=== PATIENT | male | born 1980 | race Caucasian/White ===

== ENCOUNTER 2017-09-01 10:04 | Emergency (ER) | payer BC, OTHER ==
[2017-09-01 10:08] VITALS: BP 144/83
[2017-09-01] MEDS ORDERED: Ondansetron ODT TAB* 4 MG PO ONE (10:53)
--- NOTE | 2017-09-01 10:59 | ED ---
Abdominal Pain/Male - HPI Summary HPI Summary: This pt is a 36 y/o male presenting to [facility] c/o flare up of cyclic vomiting since yesterday. Pt reports he has hx of cyclic vomiting and has been able to keep it under control for the past 3.5 years. He states he has had "minor episodes" for which he usually drinks water and goes on bike rides, in addition to taking omeprazole. Pt notes that he went to work today but vomited and had to go home. He reports his told him he looked pale. Pt additionally states severe abdominal pain, cold chills. In the past pt states the GI cocktail of Benadryl, Ativan, Zofran, and Dilaudid work for him. - History of Current Complaint Chief Complaint: EDAbdPain Stated Complaint: VOMITING Time Seen by Provider: 09/01/17 10:57 Hx Obtained From: Patient Onset/Duration: Lasting Days - 1, Still Present Timing: Lasting Days - 1 Severity Currently: Severe Pain Intensity: 8 Pain Scale Used: 0-10 Numeric Location: Diffuse Radiates: No Aggravating Factor(s): Nothing Alleviating Factor(s): Nothing Associated Signs And Symptoms: Positive: Nausea, Vomiting, Other - POS: chills. Negative: Fever - Allergies/Home Medications Allergies/Adverse Reactions: Allergies Allergy/AdvReac Type Severity Reaction Status Date / Time morphine AdvReac Vomiting Verified 09/01/17 10:08 METAL Allergy Severe SKIN Uncoded 09/01/17 10:08 IRRITATION PMH/Surg Hx/FS Hx/Imm Hx Endocrine/Hematology History: Denies: Hx Diabetes, Hx Thyroid Disease Cardiovascular History: Denies: Hx Congestive Heart Failure, Hx Hypertension Respiratory History: Denies: Hx Asthma, Hx Chronic Obstructive Pulmonary Disease (COPD) GI History: Reports: Hx Irritable Bowel - FOR 02/24, Other GI Disorders - IBS Denies: Hx Ulcer History: Denies: Hx Kidney Stones, Hx Renal Disease Musculoskeletal History: Denies: Hx Arthritis, Hx Osteoporosis - Immunization History Date of Tetanus Vaccine: Unknown Date of Influenza Vaccine: None Infectious Disease History: No Infectious Disease History: Denies: Hx Hepatitis, Hx Human Immunodeficiency Virus (HIV), Traveled Outside the [place] in Last 30 Days - Family History Known Family History: Positive: Diabetes Family History: hypercholesterolemia - Social History Alcohol Use: None Substance Use Type: Reports: None Substance Use Comment - Amount & Last Used: PT STATES HE NO LONGER SMOKES MARIJUANA Smoking Status (MU): Heavy Every Day Tobacco Smoker Review of Systems Constitutional: Other - pale, per Positive: Chills. Negative: Fever Cardiovascular: Negative Positive: Abdominal Pain, Vomiting, Nausea Skin: Negative Neurological: Negative All Other Systems Reviewed And Are Negative: Yes Physical Exam - Summary Physical Exam Summary: Appearance: The patient is well-nourished. Skin: The skin is warm and dry and skin color reflects adequate perfusion. HEENT: The head is normocephalic and atraumatic. The pupils are equal and reactive. The conjunctivae are clear and without drainage. Nares are patent and without drainage. Mouth reveals moist mucous membranes and the throat is without erythema and exudate. The external ears are intact. The ear canals are patent and without drainage. The tympanic membranes are intact. Neck: the neck is supple with full range of motion and non-tender. There are no carotid bruits. There is no neck vein distension. Respiratory: Chest is non-tender. Lungs are clear to auscultation and breath sounds are symmetrical and equal. Cardiovascular: Heart is regular rate and rhythm. There is no murmur or rub auscultated. There is no peripheral edema and pulses are symmetrical and equal. Abdomen: The abdomen is soft and non-tender. There are normal bowel sounds heard in all four quadrants and there is no organomegaly palpated. Musculoskeletal: There is no back tenderness noted. Extremities are non-tender with full range of motion. There is good capillary refill. There is no peripheral edema or calf tenderness elicited. Neurological: Patient is alert and oriented to person, place and time. Psychiatric: The patient has an appropriate affect and does not exhibit any anxiety or depression. Triage Information Reviewed: Yes Vital Signs On Initial Exam: Initial Vitals Temp Pulse Resp BP Pulse Ox 96.3 F 73 15 144/83 100 09/01/17 10:05 09/01/17 10:05 09/01/17 10:05 09/01/17 10:05 09/01/17 10:05 Vital Signs Reviewed: Yes Diagnostics - Vital Signs Vital Signs Temp Pulse Resp BP Pulse Ox 09/01/17 10:05 96.3 F 73 15 144/83 100 - Laboratory Result Diagrams: 09/01/17 11:19 09/01/17 11:19 Lab Statement: Any lab studies that have been ordered have been reviewed, and results considered in the medical decision making process. Re-Evaluation - Re-Evaluation First Eval Re-Evaluation Time: 12:56 Change: Improved Comment: Pt is currently sleeping. Abdominal Pain Fem Course/Dx - Course Course Of Treatment: Mr. Mitchell presents complaining of cyclic vomiting syndrome symptoms. He has had cyclic vomiting syndrome for many years but has been able to avoid coming to the emergency department for the last 4 years by taking omeprazole, riding his bicycle and relaxation techniques. He has had many small episodes but never had to come to the emergency department. Prior to 2013 he was a frequent visitor to this emergency department. He was treated with IV Protonix, Ativan, Dilaudid, Reglan and IV normal saline. He got significant relief and slept well here. - Diagnoses Provider Diagnoses: Abdominal pain, Cyclic vomiting syndrome Discharge - Sign-Out/Discharge Documenting (check all that apply): Patient Departure - Discharge - Discharge Plan Condition: Stable Disposition: HOME Patient Education Materials: Abdominal Pain (ED) Referrals: Care [facility] [Outside] Additional Instructions: Please establish a primary care provider and follow up in 2-3 days. RETURN TO THE ED FOR ANY WORSENING SYMPTOMS. - Billing Disposition and Condition Condition: STABLE Disposition: Home
[2017-09-01] MEDS ORDERED: NS 0.9% 1000 ML* 1,000 ML IV ONE (11:11)
[2017-09-01] MEDS ORDERED: HYDROmorphone INJ* 1 MG/ML CARPUJECT SYRINGE IV ONE (11:11)
[2017-09-01] MEDS ORDERED: Pantoprazole IV* 40 MG IV ONE (11:11)
[2017-09-01] MEDS ORDERED: diPHENhydraMINE PO* 50 MG PO ONE (11:11)
[2017-09-01] MEDS ORDERED: Metoclopramide IV* 5 MG/ML 2 ML VIAL IV ONE (11:11)
[2017-09-01] MEDS ORDERED: LORazepam INJ* 2 MG/ML 1 ML VIAL IV ONE (11:11)
[2017-09-01 11:30] LABS: ABS Basophils 0.1 10^3/ul (0-0.2); ABS Eosinophils 0 10^3/ul (0-0.6); ABS Lymphocytes 0.8 10^3/ul (1.0-4.8); ABS Monocytes 0.3 10^3/ul (0-0.8); ABS Nucleated RBC 0.1 10^3/ul; Eosinophil % 0.1 % (0-6); Hematocrit 49 % (42-52); Hemoglobin 17.1 g/dl (14.0-18.0); Lymphocyte % 6.3 % (25-47); Mean Corpuscular HGB Conc 35 g/dl (31-36); Mean Corpuscular Hemoglobin 32 pg (27-31); Mean Corpuscular Volume 91 fL (80-94); Mean Platelet Volume 7.6 um3 (7.4-10.4); Nucleated Red Blood Cells % 0.9; Platelet Count 214 10^3/ul (150-450); Red Blood Count 5.43 10^6/ul (4.00-5.40); Red Cell Distribution Width 13 % (10.5-15); White Blood Count 12.2 10^3/ul (3.5-10.8)
[2017-09-01 11:54] LABS: EGFR Non-African American 105.1 (>60)
[2017-09-01 12:03] LABS: Urine Appearance Clear; Urine Blood 1+ (Negative); Urine Color Yellow; Urine Ketones 1+ (Negative); Urine Protein 1+(30 mg/dL) (Negative); Urine Specific Gravity 1.023 (1.010-1.030); Urine Urobilinogen Negative (Negative)
== END 2017-09-01 13:44 | disposition home or self-care (01) ==
LOC: ED 10:04
DX: G43.A0 Cyclical vomiting, in migraine, not intractable (principal); R10.9 Unspecified abdominal pain; Z88.5 Allergy status to narcotic agent; F17.200 Nicotine dependence, unspecified, uncomplicated
CPT/HCPCS: 36415; 80053; 81003; 81015; 83605; 83690; 85025; 86140; 87077; 87086; 96374; 96375; 99283; A9270-GY; J1170; J2060; J2765